=== PATIENT | female | born 1950 | race Caucasian/White ===

== ENCOUNTER 2016-12-17 19:03 | Emergency (ER) | payer OTHER ==
[~2016-12-17] VITALS: Ht 160 cm; Wt 88.5 kg
[~2016-12-17 19:03] MED LIST: KEFLEX500 MG PO; PREDNISONE10 MG PO
[2016-12-17 20:23] VITALS: BP 166/68
[2016-12-17] MEDS ORDERED: LISINOPRIL5 M1 PO (20:49)
[2016-12-17] MEDS ORDERED: ATORVASTATIN CA40 M1 PO (20:49)
[2016-12-17] MEDS ORDERED: METFORMIN HCL500 M4 PO (20:50)
--- NOTE | 2016-12-17 20:54 | ED GENERAL ADULT ---
History of Present Illness General Chief Complaint: General Adult Stated Complaint: "I THINK I HAVE VERTIGO" Source: patient Exam Limitations: no limitations Vital Signs & Intake/Output Vital Signs & Intake/Output Vital Signs Date Time Temp Pulse Resp B/P Pulse O2 O2 Flow FiO2 Ox Delivery Rate 12/17 2023 99 Room Air 12/17 2022 69 18 166/68 99 Room Air 12/17 1925 97.1 72 20 183/93 97 Room Air Allergies Coded Allergies: No Known Allergies (12/17/16) Triage Note: TRIAGE: PT TO ER WITH SON Caden/Caden "LIGHTHEADED AND A LITTLE BIT DIZZY", INTERMITTENT. HAD IT THIS MORNING, RESOLVED DURING THE DAY AND RETURNED THIS EVENING APPROX 5 PM. CURRENTLY STATES "NOW I'M FEELING BETTER". WAS STARTED ON NEW DM AND CHOL MEDS IN MAY AND STARTED ON ?KIDNEY MEDICATION YESTERDAY. Triage Nurses Notes Reviewed? yes HPI: This patient is a 66-year-old female with a past medical history including hyperlipidemia and diabetes who presented to the emergency department today accompanied by her son for evaluation of lightheadedness. The patient reported that when she got up this morning at around 8:00 she felt lightheaded. She reported that the lightheadedness lasted for approximately 1 hour. She denied any nausea, dizziness, chest pain, difficult breathing, or visual changes. The patient reported that she thought maybe it was because she hadn't had anything to eat, so she ate something at approximately noon. She reported that she was feeling better after she went to the store and walked around outside. However, at approximately 5:00 in the evening she was on the phone with her daughter she started to feel lightheaded again. She reported that her vision seemed a little blurry. Her daughter suggested that she go to the emergency department to be evaluated for vertigo. Patient reported mild associated nausea with the second episode. The patient was recently started in May on metformin and atorvastatin. She had a recent diagnosis of diabetes. The patient was given a prescription for lisinopril yesterday after blood work with her doctor, but has not started the prescription yet. (SEGUNDO GANN,ALESSIA) Reconcile Medications Atorvastatin Calcium 40 MG TABLET 1 TAB PO DAILY CHOLESTEROL (Reported) Cephalexin (Keflex) 500 MG CAPSULE 500 MG PO TID INFECTION Lisinopril 5 MG TABLET 1 TAB PO DAILY HTN (Reported) Metformin HCl (Metformin HCl ER) 500 MG TAB.ER.24H 1 TAB PO DAILY DIABETES TYPE 2 (Reported) Prednisone 10 MG TABLET 40 MG PO ONCE INFLAMMATION (ELSIE KAY,MARVEL Neri) Past History Travel History Traveled to [place] past 21 day No Medical History Any Pertinent Medical History? 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 No (ALESSIA RAYMOND PA-C) Review of Systems Review of Systems Constitutional: Reports: no symptoms. EENTM: Reports: no symptoms. Respiratory: Reports: no symptoms. Cardiovascular: Reports: no symptoms. GI: Reports: see HPI. Genitourinary: Reports: no symptoms. Musculoskeletal: Reports: no symptoms. Skin: Reports: no symptoms. Neurological/Psychological: Reports: see HPI. All Other Systems: Reviewed and Negative (ALESSIA RAYMOND PA-C) Physical Exam Physical Exam General Appearance: well developed/nourished, no apparent distress, alert, awake Comments: Well-developed well-nourished person in no acute distress HEENT: Normal EENT exam, head normocephalic/atraumatic PERRLA bilaterally. EOMI bilaterally no nystagmus Neck: Supple, no lymphadenopathy Back: Normal gait Cardiovascular: Regular rate and rhythm with no murmurs, rubs, or gallops. No JVD. No carotid bruits Respiratory: Chest nontender. No respiratory distress. Breath sounds clear to auscultation bilaterally Abdomen: Soft, nontender nondistended, no appreciable organomegaly. Normal bowel sounds. No ascites Extremity: Normal and equal pulses Neuro: Alert oriented x3, motor sensory normal, cranial nerves II through XII grossly intact. Skin: No appreciable rash on exposed skin, skin is warm and dry. Psych: Mood and affect is normal Core Measures ACS in differential dx? Yes CVA/TIA Diagnosis: No Severe Sepsis Present: No Septic Shock Present: No (ALESSIA RAYMOND PA-C) Progress Differential Diagnoses I considered the following diagnoses in my evaluation of the patient: [Vertigo, Mnire's disease, hypertension, hypotension, hypoglycemia, ACS] Plan of Care: Orders Procedure Date/time Status MISTAKE 12/17 1944 Active Initial ED EKG: none Comments: 12/17/2016 8:52:57 PM: This patient has been asymptomatic for the duration of her stay here in the emergency department. She is not orthostatic. Patient reported that she feels comfortable to go home and follow-up with her primary care physician. My suspicion for vertigo as though this time due to this patient's history and physical examination with no nystagmus and no current dizziness. She no other associated symptoms. Likely hypoglycemia versus hypertension. Stable for discharge home. (ALESSIA RAYMOND PA-C) Departure Departure Disposition: HOME OR SELF CARE Condition: Stable Clinical Impression Primary Impression: Lightheadedness Referrals: HANY FOX MD (PCP/Family) Additional Instructions: Please take all previously prescribed medications as directed. Rest and be sure to stay hydrated. Please call to make a follow-up appointment with your primary care physician tomorrow. Return to the emergency department for any worsening symptoms or concerns. Departure Forms: Customer Survey General Discharge Information (ALESSIA RAYMOND PA-C) PA/FIRE PREVENTION FORESTER Co-Sign Statement Statement: ED Attending supervision documentation- [X] I saw and evaluated the patient. I have also reviewed all the pertinent lab results and diagnostic results. I agree with the findings and the plan of care as documented in the PA's/FIRE PREVENTION FORESTER's documentation. [X] I have reviewed the ED Record and agree with the PA's/FIRE PREVENTION FORESTER's documentation. [] Additions or exceptions (if any) to the PAs/FIRE PREVENTION FORESTER's note and plan are summarized below: [] (ELSIE KAY,MARVEL Neri) Critical Care Note Critical Care Note Critical Care Time: non-applicable (ALESSIA RAYMOND PA-C)
== END 2016-12-17 21:04 ==
LOC: ERH 19:03
DX: R42 Dizziness and giddiness (principal)